=== PATIENT | female | born 1985 | race Two or more races ===

== ENCOUNTER 2025-07-03 19:46 | Emergency (ER) | payer OTHER ==
[~2025-07-03] VITALS: Ht 160 cm; Wt 72.7 kg
[2025-07-03 19:52] VITALS: TEMP 98.2
[2025-07-03 20:11] LABS: APPEARANCE,URINE CLEAR (CLEAR); GLUCOSE, URINE (UA) NEGATIVE (NEGATIVE); LEUKOCYTE ESTERASE ,URINE TRACE (NEGATIVE); NITRATE,URINE NEGATIVE (NEGATIVE); OCCULT BLOOD,URINE NEGATIVE (NEGATIVE); SPECIFIC GRAVITIY, URINE 1.030 (1.003-1.030)
[2025-07-03 20:25] LABS: SQUAMOUS EPITHELIAL CELL,UR Few /LPF (None Seen)
[2025-07-04 03:09] LABS: PLATELET COUNT (AUTO) 369 K/uL (150-450); RED BLOOD CELL COUNT(AUTO) 3.71 MIL/uL (4.00-5.20); RED CELL DISTRIBUTION WIDTH 13.9 % (11.5-14.5); WHITE BLOOD COUNT (AUTO) 7.9 K/uL (4.5-11.0)
[2025-07-04 03:18] LABS: CALCIUM, TOTAL 9.0 mg/dL (8.8-10.5); CREATININE 0.75 mg/dL (0.60-1.30); GLOMERULAR FILTR. RATE CALC > 60 mL/min (>60); GLUCOSE,RANDOM 101 mg/dL (70-110); SODIUM SERUM 138 mmol/L (136-145); UREA NITROGEN, BLOOD 18 mg/dL (7-18)
[2025-07-04 05:26] VITALS: BP 116/74; PULSE 84; RESP 16; O2SAT 96
== END 2025-07-04 05:35 | disposition home or self-care (01) ==
LOC: EMS 19:46
DX: K59.00 Constipation, unspecified (principal); I10 Essential (primary) hypertension; Z60.3 Acculturation difficulty
CPT/HCPCS: 74018; 80048; 81001; 84703; 85025; 99284; 36415-L1; 36415-TC